=== PATIENT | female | born 1960 | race Caucasian/White ===

== ENCOUNTER 2019-09-02 09:19 | Outpatient (RCR) | payer MEDICARE, SELFPAY ==
--- NOTE | 2019-09-02 10:04 | PTOPEVAL ---
Thank you for referring this patient to [facility]. Please review, sign, date and return this plan of care DOUGLAS. I agree with and certify that the following plan of care is medically necessary. Referring Physician Date Admitting Provider: Attending Provider: Lolis Herron NP Referring Provider: *PT Outpatient Evaluation Start: 09/02/19 09:29 Freq: Status: Active Protocol: Document 09/02/19 09:29 HERVE (Rec: 09/02/19 09:53 [email or web address] [id number]) Therapy Assessment Status Assessment Status Assessment Status Evaluation Evaluation Information Problem Diagnosis muscle strain right arm Onset 06/14/19 Subjective Information Pt. reports that in June Query Text:As Reported By Patient/ she slipped on ice walking Family down steps and attempted to grab the handrail with the right hand. She noted immediate pain in the right arm described in the lateral brachial region. She reports that pain has not improved since initial injury. Pt. reports pain is increased with any movement of the right u.e . She cannot drive, go to the bathroom or dress herself without pain. She is able to complete all ADL's despite her pain. She reports pain will wake her at night frequently. She reports that her goal for therapy is to get rid of her right arm pain. Diagnostic Tests X-Rays For This Problem Yes MRI For This Problem Yes Prior Level of Function Activity Level (Last 3 Months) Hand Dominance Right Activity of Daily Living Ability Independent Indoor/Home Mobility Independent Community Mobility Independent Stairs Ability Independent Functional Cognition (Planning, Shopping Independent , Taking Medications) Cooking Yes Cleaning Yes Laundry Yes Shopping Yes Driving Yes Comments Additional Prior Level of Function Pt. had no complication or Comments pain prior to her injury in June. Pain Assessment Timing of Pain Assessment Timing of Pain Assessment Pre-Treatment Pain Scale Pain Scale Us
--- NOTE | 2019-10-09 13:09 | PCPTNOTE ---
10/09/19 - patient has not been to skilled PT in several weeks. she has been called with no return calls to continue poc or continue to address his goals. as of this date, she will be dc'd from skilled PT services and all progress towards goals will be taken from her most recent evaluation/note. FRANCO
== END 2019-09-02 10:19 | disposition home or self-care (01) ==
LOC: CHSPT 09:19
PROVIDERS: PCP Nurse Practitioner Family; Visit Provider Nurse Practitioner Family
DX: S46.219A Strain of muscle, fascia and tendon of other parts of biceps, unspecified arm, initial encounter (principal)
CPT/HCPCS: 97014; 97110; 97161; G0283

== ENCOUNTER 2019-09-12 08:35 | Emergency (ER) | payer MEDICARE, SELFPAY ==
--- NOTE | 2019-09-12 09:00 | ED.EXTPRO ---
HPI - Extremity Problem General Stated complaint: arm pain Source: patient Mode of arrival: ambulatory Limitations: no limitations History of Present Illness HPI Narrative: 59-year-old female with chronic left shoulder pain and x-rays performed approximately 2 to 3 weeks ago with normal findings re-injury trying to catch her grandchild with no falls has reduced range of motion pain level 03/23 has tried [id number] medication with minimal relief and scheduled for follow-up with her primary care physician. Has had physical therapy in the past. Currently there is no numbness or tingling has reduced range of motion with no swelling no bruising no recent injury or falls. Complaint: extremity pain Pain Consistency: constant Location: right and upper extremity Severity scale (1-10): 8 Quality: dull Radiation: proximal Relieving factors: immobilization Exacerbating factors: range of motion Associated symptoms: denies other symptoms Related Data Home Medications Medication Instructions Recorded Confirmed calcium carbonate-vitamin D3 1 tablet PO DAILY 07/01/19 07/01/19 lisinopril 40 mg PO DAILY 07/01/19 09/12/19 Allergies Allergy/AdvReac Type Severity Reaction Status Date / Time No Known Allergies Allergy Verified 06/28/19 10:50 Review of Systems Review of Systems: All systems reviewed & are unremarkable except as noted in HPI and below PMFSH Past Medical History Medical History Acute renal failure Hypertension Insomnia Vitamin B12 deficiency Surgical History Surgical History H/O bariatric surgery History of hysterectomy for cancer Hx of cholecystectomy Hx of hysterectomy Status post exploratory laparotomy Family History Family History Father , of multiple myeloma No problems noted. Mother , of heart disease No problems noted. Social History Social History Smoking status: Never smoker Exam Const: General: no acute distress Orientation/consciousness: patient oriented x3 HENMT: Head: normal to inspection Eyes: Conjunctivae: conjunctivae normal Pupils: Equal, round and reactive pupils present Neck: Neck: normal visual inspection Chest: Chest palpation & inspection: normal inspection of the chest Resp: Effort & Inspection: normal respiratory effort GI: GI Palp: Yes Soft to palpation : General: Yes no CVA tenderness Skin: General skin exam: normal color Rashes: no rashes Neuro: General: patient oriented x3 Extrem: Other: Reduced range of motion right upper arm with no bruising no swelling Critical Care Time Critical Care Time Critical Care Time: No Discharge Plan Discharge Clinical Impression: Rotator cuff strain Qualifiers: Encounter type: subsequent encounter Laterality: right Qualified Code(s): S46.011D - Strain of muscle(s) and tendon(s) of the rotator cuff of right shoulder, subsequent encounter Patient Disposition: Home, Self-Care Condition: Stable Instructions: Antibiotic Form Additional Instructions: take medicine as prescribed follow-up with primary care physician within 1 week for further evaluation and treatment. Prescriptions: New tramadol [Ultram] 50 mg tablet 50 mg PO Q6H PRN (Reason: pain) Qty: 20 RF: 0 No Action lisinopril 40 mg tablet 40 mg PO DAILY RF: 0 calcium carbonate-vitamin D3 600 mg(1,500mg) -400 unit tablet 1 tablet PO DAILY RF: 0 diclofenac sodium 50 mg tablet,delayed release (DR/EC) 50 mg PO TID PRN (Reason: pain) Qty: 45 RF: 0 amitriptyline 50 mg tablet 75 mg PO .QHS Qty: 45 RF: 3 cyclobenzaprine 10 mg tablet 10 mg PO Q8H PRN (Reason: muscle spasm) Qty: 30 RF: 0 codeine-guaifenesin 10-100 mg/5 mL liquid 30 ml PO .Q8-12H
[2019-09-12] MEDS: KETOROLAC (*BKC) 60 MG/2 ML VIAL IM (09:05)
[2019-09-12 09:14] VITALS: BP 133/78; PULSE 88; RESP 18; O2SAT 100
[2019-09-12 09:23] VITALS: BP 140/84; PULSE 84; RESP 18; O2SAT 97
== END 2019-09-12 09:33 | disposition home or self-care (01) ==
PROVIDERS: Emergency Provider Emergency Medicine; PCP Nurse Practitioner Family
DX: S46.011D Strain of muscle(s) and tendon(s) of the rotator cuff of right shoulder, subsequent encounter (principal); I10 Essential (primary) hypertension; E53.8 Deficiency of other specified B group vitamins
CPT/HCPCS: 96372; 99283; J1885

== ENCOUNTER 2021-07-23 14:19 | Outpatient (CLI) | payer MEDICARE, SELFPAY ==
--- NOTE | 2021-07-23 14:40 | PC.NURSE ---
Pt to room 212 amb. A&Ox3. Pt complains of cough. Regener[facility] plan of care discussed. Consent signed. Oriented to room. Call lomax in reach. Reminded to call with needs.
[2021-07-23] MEDS: ACETAMINOPHEN 325 MG TABLET 650 MG PO (14:51)
[2021-07-23] MEDS: FAMOTIDINE 20 MG TABLET PO (14:52)
[2021-07-23] MEDS: diphenhydrAMINE HCl CAP 25 MG CAPSULE PO (14:52)
[2021-07-23 14:59] VITALS: BP 139/69; PULSE 74; RESP 20; O2SAT 98
--- NOTE | 2021-07-23 16:24 | PC.NURSE ---
Pt discharge to home with daughter without complaint.
== END 2021-07-23 14:20 | disposition home or self-care (01) ==
LOC: CHSTREATRM 14:21
PROVIDERS: PCP Nurse Practitioner Family; Visit Provider Nurse Practitioner Family
DX: U07.1 COVID-19 (principal)
CPT/HCPCS: A9270; J7050; M0243; Q0244